=== PATIENT | female | born 1990 | race Caucasian/White ===

== ENCOUNTER 2018-09-01 09:23 | Inpatient (IN) ==
[2018-09-01] MEDS ORDERED: SODIUM CHLORIDE 0.9% 1,000 ML IV STA (09:45)
[2018-09-01] MEDS ORDERED: HYDROmorphone 2 MG/1 ML VIAL IV STA (09:45)
[2018-09-01] MEDS ORDERED: ONDANSETRON 4 MG/2 ML VIAL IV STA (09:45)
[2018-09-01 10:13] LABS: Basophils % 0.1 % (0.0-0.8); Hemoglobin 11.3 GM/DL (12.0-16.0); Immature Granulocytes % 0.4 %; Immature Granulocytes Absolute 0.06 #; Lymphocytes # 0.8 10*3/uL (1.4-4.0); Lymphocytes % 5.2 % (21.3-54.2); Mean Corpuscular HGB Conc 32.3 GM/DL (32-36); Mean Corpuscular Hemoglobin 29 PG (27-34); Mean Corpuscular Volume 90.4 FL (87-102); Mean Platelet Volume 10.4 FL (9.6-12.0); Monocytes # 0.8 10*3/uL (0.11-0.8); Monocytes % 5.4 % (1.7-12.7); Neutrophils # 13.2 10*3/uL (1.4-7.4); Neutrophils % 88.9 % (38.7-73.9); Platelet Count 222 T/CUMM (130-400); Red Blood Count 3.87 MC/CUMM (3.8-5.5); Red Cell Distribution Width 13.7 % (9.3-17.3); White Blood Count 14.8 T/CUMM (4-12)
[2018-09-01 10:20] LABS: Apearance,Urine Slightly Hazy (Clear); Bilirubin,Urine Negative (Negative); Blood, Urine Negative (Negative); Glucose,Urine (UA) Negative (Negative); Ketones,Urine 20 mg/dL (Negative); Mucus,Urine Occasional /LPF (Occasional); Nitrite,Urine Negative (Negative); Protein,Urine 100 MG/DL; RBC,Urine <1 /HPF (0-4); Squamous Epithelial Cell,Urine Occasional /HPF (0-10); Urine Color Yellow (Yellow); Urine Specific Gravity 1.026 (1.001-1.035); WBC,Urine 1 /HPF (0-6)
[2018-09-01 10:35] LABS: Lactic Acid 1.7 MMOL/L (0.4-2.0)
[2018-09-01 10:37] LABS: Albumin 3.5 G/DL (3.4-5.0); Bilirubin,Total 1.2 MG/DL (0.2-1.0); Osmolality,Calculated 281.3 MOS/KG (273-304); Potassium 3.7 MMOL/L (3.5-5.1); Total Protein 7.5 G/DL (6.4-8.3)
[2018-09-01] MEDS ORDERED: ACETAMINOPHEN 325 MG TABLET PO PRN (13:33)
[2018-09-01] MEDS: LACTATED RINGERS 1,000 ML IV SCH ×2 (13:54→23:02)
[2018-09-01] MEDS: MORPHINE 4 MG/1 ML VIAL IV PRN ×2 (13:55→17:58)
[2018-09-01] MEDS: cefTRIAXone 2,000 MG in SYRINGE 1 EACH IV SCH (15:58)
[2018-09-01] MEDS: DOXYCYCLINE HYCLATE INJ 100 MG in SODIUM CHLORIDE 0.9% 100 ML IV SCH (16:02)
[2018-09-01] MEDS: ONDANSETRON 4 MG/2 ML VIAL IV PRN (17:10)
[2018-09-02] MEDS: DOXYCYCLINE HYCLATE INJ 100 MG in SODIUM CHLORIDE 0.9% 100 ML IV SCH ×2 (03:03→16:27)
[2018-09-02 05:34] LABS: Basophils % 0.2 % (0.0-0.8); Eosinophils % 0.1 % (0.00-10.9); Hematocrit 30.2 VOL% (35.7-47.0); Hemoglobin 9.8 GM/DL (12.0-16.0); Immature Granulocytes % 0.5 %; Immature Granulocytes Absolute 0.08 #; Lymphocytes # 1.8 10*3/uL (1.4-4.0); Lymphocytes % 11.7 % (21.3-54.2); Mean Corpuscular HGB Conc 32.5 GM/DL (32-36); Mean Corpuscular Hemoglobin 30 PG (27-34); Mean Corpuscular Volume 91.5 FL (87-102); Mean Platelet Volume 10.9 FL (9.6-12.0); Monocytes # 0.6 10*3/uL (0.11-0.8); Monocytes % 4.2 % (1.7-12.7); Neutrophils # 12.6 10*3/uL (1.4-7.4); Neutrophils % 83.3 % (38.7-73.9); Platelet Count 179 T/CUMM (130-400); Red Cell Distribution Width 14.1 % (9.3-17.3); White Blood Count 15.1 T/CUMM (4-12)
[2018-09-02 05:54] LABS: Calcium 8.1 MG/DL (8.5-10.1); Osmolality,Calculated 278.3 MOS/KG (273-304); Potassium 3.3 MMOL/L (3.5-5.1)
[2018-09-02] MEDS: MORPHINE 4 MG/1 ML VIAL IV PRN ×2 (06:52→20:07)
[2018-09-02] MEDS: ONDANSETRON 4 MG/2 ML VIAL IV PRN (06:54)
[2018-09-02] MEDS: ENOXAPARIN 40 MG/0.4 ML SYRINGE SUBCUT SCH (06:55)
[2018-09-02] MEDS: LACTATED RINGERS 1,000 ML IV SCH ×4 (07:34→22:13)
[2018-09-02] MEDS ORDERED: MAGNESIUM SULF RIDER 4 GM in PREMIX 1 EACH IV PRN (08:37)
[2018-09-02] MEDS ORDERED: MAGNESIUM SULF RIDER 2 GM in PREMIX 1 EACH IV PRN (08:37)
[2018-09-02] MEDS ORDERED: TISSUE ADHESIVE 1 EACH APPLICATOR TOP ONE (08:56)
[2018-09-02] MEDS ORDERED: PROPOFOL 200 MG/20 ML VIAL IV ONE (09:19)
[2018-09-02] MEDS ORDERED: KETOROLAC 30 MG/1 ML VIAL ONE (09:20)
[2018-09-02] MEDS ORDERED: ONDANSETRON 4 MG/2 ML VIAL ONE (09:20)
[2018-09-02] MEDS ORDERED: DEXAMETHASONE 10 MG/1 ML VIAL ONE (09:20)
[2018-09-02] MEDS ORDERED: PHENYLEPHRINE 10 MG/1 ML VIAL IV ONE (09:20)
[2018-09-02] MEDS ORDERED: SEVOFLURANE 1 UNIT/15 MINUTE INH ONE (09:20)
[2018-09-02] MEDS ORDERED: fentaNYL 100 MCG/2 ML VIAL ONE (09:20)
[2018-09-02] MEDS ORDERED: MIDAZOLAM 2 MG/2 ML VIAL ONE (09:20)
[2018-09-02] MEDS ORDERED: SUCCINYLCHOLINE 200 MG/10 ML VIAL ONE (09:21)
[2018-09-02] MEDS ORDERED: NEOSTIGMINE 10 MG/10 ML VIAL ONE (09:21)
[2018-09-02] MEDS ORDERED: ROCURONIUM 100 MG/10 ML VIAL IV ONE (09:21)
[2018-09-02] MEDS ORDERED: GLYCOPYRROLATE 0.4 MG/2 ML VIAL ONE (09:21)
[2018-09-02] MEDS ORDERED: ACETAMINOPHEN 1,000 MG/100 ML VIAL IV ONE (09:21)
[2018-09-02] MEDS ORDERED: ACETAMINOPHEN 325 MG TABLET PO PRN (09:22)
[2018-09-02] MEDS ORDERED: oxyCODONE/ACETAMINOPHEN 5-325 MG TABLET PO PRN (09:22)
[2018-09-02] MEDS ORDERED: BENZOCAINE/MENTHOL LOZENGE 18/BOX PO PRN (09:22)
[2018-09-02] MEDS ORDERED: DOCUSATE SODIUM 100 MG CAPSULE PO PRN (09:22)
[2018-09-02] MEDS ORDERED: BISACODYL 10 MG SUPP RECTAL PRN (09:22)
[2018-09-02] MEDS ORDERED: MAGNESIUM HYDROXIDE SUSP 30 ML UDCUP PO PRN (09:22)
[2018-09-02] MEDS ORDERED: ONDANSETRON 4 MG/2 ML VIAL IV PRN (09:22)
[2018-09-02] MEDS ORDERED: IBUPROFEN 800 MG TABLET PO PRN (09:22)
[2018-09-02] MEDS: KETOROLAC 30 MG/1 ML VIAL IV SCH ×3 (11:55→21:11)
[2018-09-02] MEDS: PANTOPRAZOLE 40 MG TABLET PO SCH (11:55)
[2018-09-02] MEDS: CLINDAMYCIN INJ 900 MG in PREMIX 1 EACH IV SCH ×2 (11:59→17:30)
[2018-09-02] MEDS: cefTRIAXone 2,000 MG in SYRINGE 1 EACH IV SCH (15:51)
[2018-09-02] MEDS: POTASSIUM CHLORIDE RIDER 10 MEQ in PREMIX 1 EACH IV PRN ×3 (21:09→23:50)
[2018-09-03] MEDS: CLINDAMYCIN INJ 900 MG in PREMIX 1 EACH IV SCH ×3 (01:24→17:22)
[2018-09-03] MEDS: LACTATED RINGERS 1,000 ML IV SCH ×3 (01:32→04:36)
[2018-09-03] MEDS: POTASSIUM CHLORIDE RIDER 10 MEQ in PREMIX 1 EACH IV PRN (02:00)
[2018-09-03] MEDS: KETOROLAC 30 MG/1 ML VIAL IV SCH (03:30)
[2018-09-03] MEDS: DOXYCYCLINE HYCLATE INJ 100 MG in SODIUM CHLORIDE 0.9% 100 ML IV SCH ×2 (03:30→16:11)
[2018-09-03] MEDS: ENOXAPARIN 40 MG/0.4 ML SYRINGE SUBCUT SCH (05:36)
[2018-09-03 06:27] LABS: Basophils % 0.1 % (0.0-0.8); Eosinophils % 0.1 % (0.00-10.9); Hemoglobin 9.9 GM/DL (12.0-16.0); Immature Granulocytes % 0.8 %; Immature Granulocytes Absolute 0.11 #; Lymphocytes # 1.3 10*3/uL (1.4-4.0); Lymphocytes % 9.3 % (21.3-54.2); Mean Corpuscular HGB Conc 31.9 GM/DL (32-36); Mean Corpuscular Hemoglobin 29 PG (27-34); Mean Corpuscular Volume 91.7 FL (87-102); Mean Platelet Volume 11.2 FL (9.6-12.0); Monocytes # 0.9 10*3/uL (0.11-0.8); Monocytes % 6.8 % (1.7-12.7); Neutrophils # 11.2 10*3/uL (1.4-7.4); Neutrophils % 82.9 % (38.7-73.9); Platelet Count 224 T/CUMM (130-400); Red Blood Count 3.38 MC/CUMM (3.8-5.5); Red Cell Distribution Width 14.1 % (9.3-17.3); White Blood Count 13.4 T/CUMM (4-12)
[2018-09-03 06:48] LABS: Calcium 8.8 MG/DL (8.5-10.1); Osmolality,Calculated 281.3 MOS/KG (273-304); Potassium 4.3 MMOL/L (3.5-5.1)
[2018-09-03] MEDS: PANTOPRAZOLE 40 MG TABLET PO SCH (09:51)
[2018-09-03] MEDS: cefTRIAXone 2,000 MG in SYRINGE 1 EACH IV SCH (15:15)
[2018-09-03 17:09] VITALS: BP 104/70
== END 2018-09-03 18:50 | disposition home or self-care (01) | DRG 745 ==
LOC: EDUNIT# → EDBD → N.ED 09:23 → N.EDINP 09:23 → N.3E 12:31
PROVIDERS: ADMIT Surgery; ATTEND Surgery

== ENCOUNTER 2019-02-16 07:31 | Observation (INO) ==
[2019-02-16] MEDS ORDERED: KETOROLAC 30 MG/1 ML VIAL IV STA (07:53)
[2019-02-16] MEDS ORDERED: HYDROmorphone 2 MG/1 ML VIAL IV STA (07:53)
[2019-02-16] MEDS ORDERED: SODIUM CHLORIDE 0.9% 1,000 ML IV STA (07:53)
[2019-02-16] MEDS ORDERED: ONDANSETRON 4 MG/2 ML VIAL IV STA (07:53)
[2019-02-16 08:01] LABS: Basophils % 0.3 % (0.0-0.8); Eosinophils # 0.1 10*3/uL (0.0-0.87); Eosinophils % 1.2 % (0.00-10.9); Hemoglobin 13.1 GM/DL (12.0-16.0); Immature Granulocytes % 0.2 %; Immature Granulocytes Absolute 0.01 #; Lymphocytes # 2.8 10*3/uL (1.4-4.0); Lymphocytes % 47.8 % (21.3-54.2); Mean Corpuscular Volume 89.5 FL (87-102); Mean Platelet Volume 10.2 FL (9.6-12.0); Monocytes % 8.7 % (1.7-12.7); Neutrophils % 41.8 % (38.7-73.9); Platelet Count 264 T/CUMM (130-400); Red Blood Count 4.58 MC/CUMM (3.8-5.5); Red Cell Distribution Width 14.6 % (9.3-17.3); White Blood Count 5.9 T/CUMM (4-12)
[2019-02-16 08:25] LABS: Albumin 4.7 G/DL (3.4-5.0); Bilirubin,Total 0.7 MG/DL (0.2-1.0); Calcium 9.9 MG/DL (8.5-10.1); Osmolality,Calculated 276.5 MOS/KG (273-304); Total Protein 8.6 G/DL (6.4-8.3)
[2019-02-16] MEDS ORDERED: POTASSIUM CHLORIDE 20 MEQ TABLET PO STA (08:49)
[2019-02-16 09:22] LABS: Apearance,Urine Slightly Hazy (Clear); Bacteria,Urine Occasional /HPF (Few); Bilirubin,Urine Negative (Negative); Blood, Urine Negative (Negative); Glucose,Urine (UA) Negative (Negative); Ketones,Urine 20 mg/dL (Negative); Mucus,Urine Moderate /LPF (Occasional); Nitrite,Urine Negative (Negative); Protein,Urine Negative; RBC,Urine 2 /HPF (0-4); Squamous Epithelial Cell,Urine Moderate /HPF (0-10); Urine Color Yellow (Yellow); Urine Specific Gravity 1.017 (1.001-1.035); Urine Urobilinogen < 2.0 EU/DL (0.2-1.0); WBC,Urine 6 /HPF (0-6)
[2019-02-16] MEDS ORDERED: MAGNESIUM HYDROXIDE SUSP 30 ML UDCUP PO PRN (12:27)
[2019-02-16] MEDS ORDERED: ONDANSETRON 4 MG/2 ML VIAL IV PRN (12:27)
[2019-02-16] MEDS ORDERED: ACETAMINOPHEN 325 MG TABLET PO PRN (12:27)
[2019-02-16] MEDS ORDERED: BISACODYL 10 MG SUPP RECTAL PRN (12:27)
[2019-02-16] MEDS: LACTATED RINGERS 1,000 ML IV SCH ×2 (12:39→21:06)
[2019-02-16] MEDS: IBUPROFEN 800 MG TABLET PO PRN (15:19)
[2019-02-16] MEDS: cefOXitin 2,000 MG in SYRINGE 1 EACH IV SCH ×2 (16:56→23:36)
[2019-02-16] MEDS: DOCUSATE SODIUM 100 MG CAPSULE PO SCH (23:03)
[2019-02-17 03:51] LABS: Basophils % 0.4 % (0.0-0.8); Eosinophils # 0.1 10*3/uL (0.0-0.87); Eosinophils % 1.2 % (0.00-10.9); Immature Granulocytes % 0.4 %; Immature Granulocytes Absolute 0.02 #; Lymphocytes # 2.6 10*3/uL (1.4-4.0); Lymphocytes % 50.9 % (21.3-54.2); Mean Corpuscular HGB Conc 30.3 GM/DL (32-36); Mean Platelet Volume 10.4 FL (9.6-12.0); Monocytes % 8.2 % (1.7-12.7); Neutrophils % 38.9 % (38.7-73.9); Platelet Count 169 T/CUMM (130-400); Red Blood Count 3.55 MC/CUMM (3.8-5.5); Red Cell Distribution Width 14.9 % (9.3-17.3)
[2019-02-17 04:07] LABS: Calcium 8.2 MG/DL (8.5-10.1); Osmolality,Calculated 285.8 MOS/KG (273-304)
[2019-02-17] MEDS: LACTATED RINGERS 1,000 ML IV SCH (05:25)
[2019-02-17] MEDS: cefOXitin 2,000 MG in SYRINGE 1 EACH IV SCH ×2 (05:25→12:00)
[2019-02-17] MEDS: DOCUSATE SODIUM 100 MG CAPSULE PO SCH (09:16)
[2019-02-17] MEDS: IBUPROFEN 800 MG TABLET PO PRN (09:18)
[2019-02-17 12:52] VITALS: BP 98/46
== END 2019-02-17 14:30 | disposition home or self-care (01) ==
LOC: N.EDINP 07:31 → N.ED 07:31 → N.OB 12:10
PROVIDERS: ADMIT Obstetrics & Gynecology; ATTEND Obstetrics & Gynecology